=== PATIENT | male | born 1985 | race Caucasian/White ===

== ENCOUNTER 2019-05-01 14:11 | Emergency (ER) | payer OTHER ==
[2019-05-01] MEDS ORDERED: methylPREDNISolone SOD SUCC 125 MG/2 ML VIAL ONE (14:25)
[2019-05-01] MEDS ORDERED: diphenhydrAMINE HCL 50 MG/ML VIAL ONE (14:25)
== END 2019-05-01 15:12 | disposition home or self-care (01) ==
LOC: ED 14:11
DX: L50.9 Urticaria, unspecified (principal)
CPT/HCPCS: 96374; 96375; 99283; 99284; J1200; J2930; S1016

== ENCOUNTER → 2019-05-08 | Emergency (ER) | payer OTHER ==
[~2019-05-08] MED LIST: BUPIVACAINE HCL 0.5% (5MG/ML) PF 10ML VIAL IV ONE; DIPH,PERTUSS(ACELL),TET VAC/PF 0.5 ML DISP.SYRIN IM ONE; IPRATROPIUM/ALBUTEROL SULFATE 3 ML AMPUL.NEB NEB ONE
--- NOTE | 2019-07-07 12:49 | Diagnostic Imaging Report ---
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 [address] Report Submission Date: May 08, 2019 12:11:15 PM CDT Patient Study Name: CLAYTON JIM Date: May 08, 2019 11:39:10 AM CDT Modality Type: DX Gender: M Description: HAND 3 VIEWS OR MORE : 83 Institution: [facility] Physician: TALIB CAPONE (SHAHRAM) - ER Examination: Plain film left hand History: PAIN; INJURY TO 2ND DIGIT Comparison exams: None available Findings: 3 views of the left hand demonstrate normal cortical margins. No fracture. No dislocation. Impression: No acute osseous abnormality Electronically signed on May 08, 2019 12:11:15 PM CDT by: Senthil LOPEZ
== END ==
LOC: ED 05-08 11:15
DX: S61.221A Laceration with foreign body of left index finger without damage to nail, initial encounter (principal); W26.8XXA Contact with other sharp object(s), not elsewhere classified, initial encounter
CPT/HCPCS: 12001; 73130; 94640; 96372; 96374; 99283; 99284; J3490; J7030